=== PATIENT | female | born 1980 | race Caucasian/White ===

== ENCOUNTER 2020-08-31 10:21 | Outpatient (REF) | payer SELFPAY ==
[2020-08-31 11:14] LABS: COVID-19 Test Negative (Negative)
== END 2020-08-31 10:22 | disposition home or self-care (01) ==
LOC: HO.LAB 10:21
PROVIDERS: Visit Provider Internal Medicine
DX: Z20.828 Contact with and (suspected) exposure to other viral communicable diseases (principal)
CPT/HCPCS: 87635

== ENCOUNTER 2020-09-04 07:03 | Outpatient (REF) | payer SELFPAY ==
[2020-09-04 07:20] LABS: COVID-19 Test Negative (Negative)
== END 2020-09-04 07:04 | disposition home or self-care (01) ==
LOC: HO.LAB 07:03
PROVIDERS: Visit Provider Internal Medicine
DX: Z20.828 Contact with and (suspected) exposure to other viral communicable diseases (principal)
CPT/HCPCS: 87635